=== PATIENT | female | born 1955 | race Hispanic/Latino ===

== ENCOUNTER → 2018-11-14 | Outpatient (CLI) | payer BC | END | disposition home or self-care (01) | LOC: OIH 13:04 | PROVIDERS: ATTEND Internal Medicine | DX: M13.842 Other specified arthritis, left hand (principal); M13.841 Other specified arthritis, right hand | CPT/HCPCS: 73130 ==

== ENCOUNTER → 2020-02-06 | Outpatient (CLI) | payer BC, MEDICARE ==
[~2020-02-06] VITALS: Ht 157.5 cm; Wt 64.9 kg
[~2020-02-06] MED LIST: REGADENOSON 0.4 MG/5 ML PF SYG IVP SCH
== END | disposition home or self-care (01) ==
LOC: SHCH 08:47
PROVIDERS: ATTEND Internal Medicine Cardiovascular Disease
DX: R94.31 Abnormal electrocardiogram [ECG] [EKG] (principal); R06.00 Dyspnea, unspecified
CPT/HCPCS: 78452; 93017; 96374; A9500 ×2; J2785

== ENCOUNTER → 2021-02-25 | Outpatient (CLI) | payer BC, MEDICARE | END | disposition home or self-care (01) | LOC: SHCH 10:00 | PROVIDERS: ATTEND Internal Medicine Cardiovascular Disease | DX: R07.9 Chest pain, unspecified (principal) | CPT/HCPCS: 93306; 93356 ==

== ENCOUNTER 2022-06-14 05:33 | Observation (INO) | payer BC, MEDICARE ==
[2022-06-13 11:49] LABS: BASOPHILS % (AUTO) 0.7 % (0.0-5.0); EOSINOPHILS % (AUTO) 1.9 % (0.0-8.0); HEMATOCRIT 44.4 % (36-48); LYMPHOCYTES % (AUTO) 49.3 % (21.0-51.0); MEAN CORPUSCULAR HEMOGLOBIN 32.1 pg (27.0-33.0); MEAN CORPUSCULAR VOLUME 94.5 fL (79-99); MONOCYTES % (AUTO) 7.9 % (3.0-13.0); NEUTROPHILS % (AUTO) 39.3 % (40.0-77.0); PLATELET COUNT (AUTO) 221 K/uL (130-400); RED CELL DISTRIBUTION WIDTH 12.6 % (11.0-15.5); WHITE BLOOD COUNT (AUTO) 4.3 K/uL (4.8-10.8)
[2022-06-13 11:58] LABS: INR 0.93 (0.85-1.15); PROTHROMBIN TIME 10.1 SEC (9.6-11.6)
[2022-06-13 11:59] LABS: PARTIAL THROMBOPLASTIN TIME 26.3 SEC (26.3-35.5)
[2022-06-13 12:00] LABS: APPEARANCE,URINE CLEAR (CLEAR); BILIRUBIN,URINE NEGATIVE (NEGATIVE); COLOR,URINE LIGHT-YELLOW (YELLOW); GLUCOSE, URINE (UA) NEGATIVE (NEGATIVE); KETONES,URINE NEGATIVE (NEGATIVE); LEUKOCYTE ESTERASE ,URINE NEGATIVE Leu/uL (NEGATIVE); NITRATE,URINE NEGATIVE (NEGATIVE); OCCULT BLOOD,URINE NEGATIVE (NEGATIVE); PH,URINE 7.5 (5.0-8.0); PROTEIN,URINE NEGATIVE (NEGATIVE); UROBILINOGEN,URINE 0.2 mg/dL (0.2-1.0)
[2022-06-13 14:06] VITALS: BP 142/63
[2022-06-14] VITALS (26 sets, daily range): BP systolic 116–184; BP diastolic 62–89
[~2022-06-14] VITALS: Ht 157.5 cm; Wt 59.9 kg
[~2022-06-14 05:33] MED LIST changes: +CELE200C PO; +LEVO75TA10 PO; +PROG100C11 PO; -REGADENOSON 0.4 MG/5 ML PF SYG IVP SCH
[2022-06-14] MEDS ORDERED: CEFAZOLIN SODIUM 2 GM VIAL ONE (06:03)
[2022-06-14] MEDS ORDERED: LACTATED RINGERS 1000ML 1,000 ML IV ONE (06:03)
[2022-06-14] MEDS ORDERED: CEFAZOLIN SODIUM 2 GM VIAL IVPB SCH (08:00)
[2022-06-14] MEDS ORDERED: SUCCINYLCHOLINE 200MG/10ML SYR ONE (08:15)
[2022-06-14] MEDS ORDERED: ROCURONIUM 10MG/1ML SYR 10 MG/ML ML ONE (08:16)
[2022-06-14] MEDS ORDERED: PROPOFOL 10 MG/ML 20ML VIAL IV ONE (08:16)
[2022-06-14] MEDS ORDERED: MIDAZOLAM HCL 1 MG/ML 2ML VIAL ONE (08:16)
[2022-06-14] MEDS ORDERED: FENTANYL CITRATE PF 50 MCG/1 ML 2ML VIAL ONE (08:16)
[2022-06-14] MEDS ORDERED: GLYCOPYRROLATE 1 MG/5 ML SYRINGE ONE (10:14)
[2022-06-14] MEDS ORDERED: NEOSTIGMINE 5MG/5ML SYR IV ONE (10:14)
[2022-06-14] MEDS: PROMETHAZINE HCL 25 MG/ML 1ML AMPULE IM PRN ×2 (12:55→20:30)
[2022-06-14] MEDS: MEPERIDINE-PF 75 MG/ML SYG IM PRN ×2 (12:56→20:31)
[2022-06-14] MEDS ORDERED: BISACODYL 10 MG SUPP.RECT RC PRN (13:00)
[2022-06-14] MEDS ORDERED: PROMETHAZINE HCL 25 MG/ML 1ML AMPULE IM PRN (13:00)
[2022-06-14] MEDS ORDERED: ONDANSETRON 4MG INJ IVP PRN (13:00)
[2022-06-14] MEDS ORDERED: ACETAMINOPHEN WITH CODEINE 1 TAB TAB PO PRN (13:00)
[2022-06-14] MEDS ORDERED: DOCUSATE SODIUM 100 MG CAP PO PRN (13:00)
[2022-06-14] MEDS ORDERED: IBUPROFEN 600 MG TABLET PO PRN (13:00)
[2022-06-14] MEDS: DEXTROSE 5 %-0.45 % NACL 1,000 ML IV PRN ×2 (15:55→21:49)
[2022-06-14] MEDS: NITROFURANTOIN MONOHYD/M-CRYST 100 MG CAPSULE PO SCH (20:18)
[2022-06-14] MEDS: SIMETHICONE 80 MG TAB.CHEW PO PRN (20:18)
[2022-06-15 04:14] VITALS: BP 139/80
[2022-06-15] MEDS ORDERED: BISACODYL 10 MG SUPP.RECT RC PRN (05:30)
[2022-06-15] MEDS ORDERED: HYDROCODONE/ACETAMINOPHEN 5/325 MG TAB PO PRN (05:30)
[2022-06-15] MEDS ORDERED: SIMETHICONE 80 MG TAB.CHEW PO PRN (05:30)
[2022-06-15] MEDS: IBUPROFEN 800 MG TAB PO PRN ×2 (06:32→15:21)
[2022-06-15] MEDS: DEXTROSE 5 %-0.45 % NACL 1,000 ML IV PRN (06:32)
[2022-06-15 06:44] LABS: HEMATOCRIT 39.8 % (36-48); MEAN CORPUSCULAR HEMOGLOBIN 32.1 pg (27.0-33.0); MEAN CORPUSCULAR HGB CONC 35.2 g/dL (32.0-36.0); MEAN CORPUSCULAR VOLUME 91.3 fL (79-99); RED BLOOD CELL COUNT(AUTO) 4.36 MIL/uL (4.00-5.50); RED CELL DISTRIBUTION WIDTH 12.4 % (11.0-15.5); WHITE BLOOD COUNT (AUTO) 7.8 K/uL (4.8-10.8)
[2022-06-15 07:32] VITALS: BP 168/87
[2022-06-15] MEDS: SIMETHICONE 80 MG TAB.CHEW PO PRN ×2 (08:41→21:07)
[2022-06-15] MEDS: DOCUSATE SODIUM 100 MG CAP PO PRN ×2 (08:41→21:07)
[2022-06-15] MEDS: NITROFURANTOIN MONOHYD/M-CRYST 100 MG CAPSULE PO SCH ×2 (08:41→21:07)
[2022-06-15] MEDS: ACETAMINOPHEN WITH CODEINE 1 TAB TAB PO PRN ×2 (11:03→19:18)
[2022-06-15 11:16] VITALS: BP 166/80
[2022-06-15 16:00] VITALS: BP 135/76
[2022-06-15 19:36] VITALS: BP 144/78
[2022-06-15 23:43] VITALS: BP 131/71
[2022-06-16 03:41] VITALS: BP 111/66
[2022-06-16 07:36] VITALS: BP 112/64
[2022-06-16] MEDS: DOCUSATE SODIUM 100 MG CAP PO PRN (08:39)
[2022-06-16] MEDS: SIMETHICONE 80 MG TAB.CHEW PO PRN (08:39)
[2022-06-16] MEDS: NITROFURANTOIN MONOHYD/M-CRYST 100 MG CAPSULE PO SCH (08:39)
[2022-06-16] MEDS: IBUPROFEN 800 MG TAB PO PRN (08:41)
== END 2022-06-16 10:35 | disposition home or self-care (01) ==
LOC: DAH 05:33 → WSH 05:34 → DAH 05:34
PROVIDERS: ADMIT Obstetrics & Gynecology; ATTEND Obstetrics & Gynecology
DX: N81.3 Complete uterovaginal prolapse (principal); Z20.822 Contact with and (suspected) exposure to COVID-19; K46.9 Unspecified abdominal hernia without obstruction or gangrene; K59.00 Constipation, unspecified; Z79.899 Other long term (current) drug therapy
CPT/HCPCS: 85025; 85610; 85730; 86850; 86900; 86901; 87426; 81003; 36415 ×2; 57265; 58263; 57288; 96372; 85027; G0378 ×47; A4510; A4606; A4344; J7120; J3010; J0330; J3490; J2710; J2550 ×2; J2250; J2704; J2175 ×2; J0690; C1771; A4351; A4215; A4223; A4222; A4221; A4663; A4600; L0625